=== PATIENT | female | born 1960 | race Caucasian/White ===

== ENCOUNTER → 2019-09-23 | Outpatient (CLI) | payer OTHER | END | disposition home or self-care (01) | LOC: ROC 07:42 | PROVIDERS: ATTEND Radiology Radiation Oncology | DX: C78.02 Secondary malignant neoplasm of left lung (principal); C79.31 Secondary malignant neoplasm of brain | CPT/HCPCS: 99214; G0463 ==

== ENCOUNTER → 2019-12-18 | Outpatient (CLI) | payer OTHER | END | disposition home or self-care (01) | LOC: ROC 12-01 07:42 | PROVIDERS: ATTEND Radiology Radiation Oncology | DX: C79.31 Secondary malignant neoplasm of brain (principal); C78.00 Secondary malignant neoplasm of unspecified lung | CPT/HCPCS: 99213; G0463 ==

== ENCOUNTER → 2020-01-26 | Outpatient (CLI) | payer OTHER | END | disposition home or self-care (01) | LOC: ROC 08:40 | PROVIDERS: ATTEND Radiology Radiation Oncology | DX: C79.31 Secondary malignant neoplasm of brain (principal); C34.92 Malignant neoplasm of unspecified part of left bronchus or lung | CPT/HCPCS: 99213; G0463 ==

== ENCOUNTER 2020-04-27 08:26 | Outpatient (CLI) | payer MEDICAID, OTHER | END 2020-04-27 23:59 | disposition home or self-care (01) | LOC: ROC 08:26 | PROVIDERS: ATTEND Radiology Radiation Oncology | DX: C79.31 Secondary malignant neoplasm of brain (principal); Z85.118 Personal history of other malignant neoplasm of bronchus and lung | CPT/HCPCS: G2012; G2251 ==

== ENCOUNTER 2020-07-07 07:30 | Outpatient (CLI) | payer MEDICAID | END 2020-07-07 23:59 | disposition home or self-care (01) | LOC: ROC 07:30 | PROVIDERS: ATTEND Radiology Radiation Oncology | DX: Z08 Encounter for follow-up examination after completed treatment for malignant neoplasm (principal); C79.31 Secondary malignant neoplasm of brain; Z85.841 Personal history of malignant neoplasm of brain | CPT/HCPCS: 99442 ==

== ENCOUNTER 2020-10-26 09:52 | Outpatient (CLI) | payer MEDICAID | END 2020-10-26 23:59 | disposition home or self-care (01) | LOC: ROC 09:52 | PROVIDERS: ATTEND Radiology Radiation Oncology | DX: C79.31 Secondary malignant neoplasm of brain (principal); Z85.118 Personal history of other malignant neoplasm of bronchus and lung | CPT/HCPCS: 99213; G0463 ==

== ENCOUNTER 2020-11-18 07:08 | Outpatient (CLI) | payer MEDICAID | END 2020-11-18 23:59 | disposition home or self-care (01) | LOC: ROC 07:08 | PROVIDERS: ATTEND Radiology Radiation Oncology | DX: C79.31 Secondary malignant neoplasm of brain (principal); Z85.118 Personal history of other malignant neoplasm of bronchus and lung | CPT/HCPCS: G2251 ==